=== PATIENT | female | born 1985 | race African-American/Black ===

== ENCOUNTER 2018-05-09 23:07 | Observation (INO) ==
[2018-05-10] MEDS ORDERED: Morphine Inj 4 MG/ML Vial IV.PUSH ONE ×2 (00:22→23:02)
[2018-05-10] MEDS ORDERED: Ketorolac Inj 30 MG/ML (IVP) Vial IV.PUSH ONE (00:22)
[2018-05-10] MEDS ORDERED: Sod Chloride 0.9% Inj 1,000 ML IV.CONT SCH (00:30)
--- NOTE | 2018-05-10 01:19 | XR ---
EXAM DATE: 05/10/2018 1:11 AM EST AGE/SEX: 32 years / Female INDICATIONS: Pain for one week. CLINICAL DATA: This is the patient's initial encounter. Patient reports that signs and symptoms have been present for 1 week and indicates a pain score of 5/10. MEDICAL/SURGICAL HISTORY: None. None. COMPARISON: No prior exams available for comparison. FINDINGS: The lumbar vertebral bodies are normal in height. They are normally aligned in the sagittal plane. Th ere is a levocurvature of the thoracolumbar region. The disc spaces are preserved. There is mild spur ring seen at the lower thoracic and upper lumbar spine. The sacroiliac joints are intact. CONCLUSION: No acute abnormality seen. Electronically signed by: Brayan Gutierrez MD Board Certified Radiologist 05/10/2018 1:18 AM EST
--- NOTE | 2018-05-10 01:21 | XR ---
EXAM DATE: 05/10/2018 1:10 AM EST AGE/SEX: 32 years / Female INDICATIONS: Pain for one week. CLINICAL DATA: This is the patient's initial encounter. Patient reports that signs and symptoms have been present for 1 week and indicates a pain score of 5/10. MEDICAL/SURGICAL HISTORY: None. None. COMPARISON: No prior exams available for comparison. FINDINGS: There is widening of the pubic symphysis measuring 2.3 cm. The sacroiliac joints appear widened. An a cute fracture is not seen. The hip joints are normally aligned. CONCLUSION: Widened pubic symphysis and possibly the sacroiliac joints. This should be correlate if there has bee n a prior injury. Electronically signed by: Brayan Gutierrez MD Board Certified Radiologist 05/10/2018 1:20 AM EST
[2018-05-10 01:41] LABS: Anion Gap 6 meq/L (5-15); Blood Urea Nitrogen 12 mg/dL (7-18); Calcium 8.5 mg/dL (8.5-10.1); Carbon Dioxide 26.6 meq/L (21.0-32.0); Chloride 108 meq/L (98-107); Glomerular Filtration Rate Greater Than 89 mL/min (>89); Glucose,Random 91 mg/dL (74-106); Potassium 3.9 meq/L (3.5-5.1); Sodium 141 meq/L (136-145)
[2018-05-10 01:43] LABS: Creatine Kinase 116 U/L (26-192)
[2018-05-10 01:49] LABS: Activated Partial Thrombo Time 28.5 sec (23.4-31.7); Prothrombin Time 10.3 sec (9.8-11.6)
[2018-05-10 01:50] LABS: Baso # (Auto) 0.1 th/mm3 (0.0-0.2); Baso % (Auto) 0.8 % (0.0-2.0); Eos # (Auto) 0.1 th/mm3 (0.0-0.4); Eos % (Auto) 0.8 % (0.0-4.0); Hematocrit 23.4 % (35.0-46.0); Lymph % (Auto) 21.3 % (9.0-44.0); Mean Corpuscular Hemoglobin 15.9 pg (27.0-34.0); Mean Corpuscular Volume 56.5 fL (80.0-100.0); Mono # (Auto) 0.5 th/mm3 (0.0-0.9); Mono % (Auto) 5.1 % (0.0-8.0); Neut # (Auto) 6.6 th/mm3 (1.8-7.7); Platelet Count 467 th/mm3 (150-450); Red Blood Count 4.14 mil/mm3 (4.00-5.30); White Blood Count 9.2 th/mm3 (4.0-11.0)
[2018-05-10 01:51] LABS: Mean Corpuscular HGB Conc 28.1 % (32.0-36.0)
[2018-05-10 01:54] LABS: Hemoglobin 6.6 gm/dL (11.6-15.3)
[2018-05-10 02:18] LABS: Ovalocytes 1+
--- NOTE | 2018-05-10 04:07 | CT ---
EXAM DATE: 05/10/2018 3:57 AM EST AGE/SEX: 32 years / Female INDICATIONS: Trauma; Fall. Lower back and pelvic pain. CLINICAL DATA: This is the patient's initial encounter. Patient reports that signs and symptoms have been present for 1 day and indicates a pain score of 7/10. MEDICAL/SURGICAL HISTORY: Anemia. section. ORAL CONTRAST: No oral contrast ingested. RADIATION DOSE: 32.79 CTDI (mGy) ; Patient body habitus COMPARISON: No prior exams available for comparison. TECHNIQUE: Multiple contiguous axial images were obtained through the abdomen and pelvis following b olus infusion of 100 ml Omnipaque 350 (iohexol) nonionic water-soluble contrast as a single exam do se. No oral contrast ingested. Using automated exposure control and adjustment of the mA and/or kV a ccording to patient size, radiation dose was kept as low as reasonably achievable to obtain optimal d iagnostic quality images. DICOM format image data is available electronically for review and compari son. FINDINGS: Lower Lungs: The visualized lower lungs are clear. Liver: The liver has a homogeneous density without space-occupying lesion. There is no dilation of th e biliary tree. Spleen: Homogeneous density without enlargement. Pancreas: Unremarkable without mass or calcification. Kidneys: Normal in size and shape. No evidence of mass or hydronephrosis. Adrenal Glands: Unremarkable. Aorta: The aorta and proximal iliac vessels are grossly unremarkable without aneurysmal dilation. Bowel/Mesentery: The bowel loops are grossly unremarkable. The cecum and sigmoid colon have a normal configuration. Abdominal Wall: Intact. There is a focal metallic density seen in the deep subcutaneous fat at the l eft lateral lower abdomen just above the pelvic inlet region. Retroperitoneum: No evidence of adenopathy in the retrocrural, para-aortic, or deep pelvic regions. Bladder: Contours are smooth. Reproductive Organs: No abnormal masses or calcifications seen. Inguinal: The inguinal region is unremarkable without evidence of adenopathy. Bony Structures: There is a dextrocurvature of the thoracic spine and a levocurvature of the thoraco lumbar region. There is widening of the pubic symphysis measuring 1.9 cm. The sacroiliac joints appea r slightly widened. An acute fracture is not seen. CONCLUSION: Mild diastases of the pubic symphysis with the pubic bones by 1.9 cm. There is also slight widening of the sacroiliac joints. Electronically signed by: Brayan Gutierrez MD Board Certified Radiologist 05/10/2018 4:06 AM EST
[2018-05-10] MEDS ORDERED: HYDROmorphone PF Inj 2 MG/ML Vial IV.PUSH ONE (04:56)
--- NOTE | 2018-05-10 05:10 | ED ---
HPI General Chief Complaint: Fall Stated Complaint: Back pain Time Seen by Provider: 05/10/18 00:21 Source: patient Mode of arrival: EMS Limitations: no limitations History of Present Illness HPI Narrative: 32-year-old female presents to the emergency department by EMS transport for complaint of chronic recurrent low back pain. Patient has history of chronic back pain. Patient has been hospitalized before for chronic back pain. Patient was hospitalized in 2016. Patient had MRI that showed chronic changes without significant canal stenosis. Patient has done pretty well with intermittent episodes of chronic back pain however on Sunday was doing nonspecific activities noticed that she was having increasing low back pain and then on morning she states that her back locked up on her so that she could not tolerate the pain causing her to fall to the floor. Patient states she landed on her buttock. Patient states she did not sustain any injuries. Patient states that she does not have a headache. Patient states she did not hit her head. Patient denies any neck pain or upper back pain. Patient states pain is localized to her lower midline back which is where she chronically has pain. Patient denies any pelvic pain. Patient denies any hip pain. Patient states she has no numbness tingling or weakness of the legs but intermittently has shooting pain down the left lower extremity. Patient had no saddle anesthesia. Patient denies any bladder or bowel dysfunction. Patient states she sat on the floor for approximately 5 hours was able to move around the household by scooting herself and then finally her family helped her get up on the couch and she was able to be assisted to the bathroom to perform bodily functions such as urination and bowel movement. Patient states she took Aleve without symptomatic relief. Patient states because she has had issues with her back before and Aleve is not providing her relief she decided to come to the emergency room. Patient states that she was not able to get around with family assistance to come by private vehicle so came by EMS transport. Patient denies other concerns or complaints but does admit to history of chronic anemia. Patient has received blood transfusion in the past. Patient had no nausea no vomiting no hematemesis no coffee-ground emesis no melena no hematochezia no hemoptysis no epistaxis and no increased bruising. Patient has very heavy periods and states that her last menstrual period was 1 week ago when she passed large clots and had heavy bleeding which is typical for her. Patient's been on no iron replacement for over a year since her hospitalization in 2016. complaint: Reports fall Onset (ago): day(s) Related Data Home Medications Medication Instructions Recorded Confirmed No Known Home Medications 05/09/18 05/09/18 Allergies Allergy/AdvReac Type Severity Reaction Status Date / Time No Known Allergies Allergy Verified 05/09/18 23:15 Review of Systems ROS: all other systems reviewed are negative PMFSH History History Provided By: Patient (Anemia scoliosis chronic back pain) Medical History Medical History Anemia (Acute) Back pain (Acute) Surgical History Surgical History Previous section (Acute) Social History Social History Substance History: No History of Abuse Second Hand Smoke Exposure: No Smoking Status: Former smoker How Often Do You Have a Drink Containing Alcohol: Monthly or less Recent Travel in [facility] within the Last 8 Weeks: No Recent Out of Country Travel within the Last 8 Weeks: No Immunization History Tetanus Immunization: Unsure Exam Narrative Exam Narrative: GENERAL: Well-developed morbidly obese female in no acute distress no respiratory distress resting supine. SKIN: Focused skin assessment warm/dry. HEAD: Atraumatic. Normocephalic. EYES: Pupils equal and round. No scleral icterus. No injection or drainage. ENT: No nasal bleeding or discharge. Mucous membranes pink and moist. NECK: Trachea midline. No JVD. CARDIOVASCULAR: Regular rate and rhythm. No murmur appreciated. RESPIRATORY: No accessory muscle use. Clear to auscultation. Breath sounds equal bilaterally. GASTROINTESTINAL: Abdomen soft, non-tender, nondistended. Hepatic and splenic margins not palpable. MUSCULOSKELETAL: No obvious deformities. No clubbing. No cyanosis. No edema. Patient demonstrates increased pain to the low back area with palpation and also with rotational movement or attempting to sit upright. Patient denies any upper back pain or pelvic pain or lower extremity numbness tingling or weakness or pain. Motor strength is 5/5 bilateral upper extremities and lower extremities. Sensory exam is intact. LLE SLR. Bilateral dorsalis pedis pulses 2+ to palpation. NEUROLOGICAL: Awake and alert. No obvious cranial nerve deficits. Motor grossly within normal limits. Normal speech. PSYCHIATRIC: Appropriate mood and affect; insight and judgment normal. Course Consultations Consultation #1: call placed to [facility] medicine service Initial Documented Vital Signs Temperature 98.7 F 05/09/18 23:10 Pulse Rate 77 05/09/18 23:10 Respiratory Rate 17 05/09/18 23:10 Blood Pressure 141/63 H 05/09/18 23:10 Pulse Oximetry 99 05/09/18 23:10 Last Documented Vital Signs Temperature 98.7 F 05/09/18 23:10 Pulse Rate 68 05/10/18 04:57 Respiratory Rate 17 05/10/18 04:57 Blood Pressure 114/56 L 05/10/18 04:57 Pulse Oximetry 100 05/10/18 04:57 Medical Decision Making MDM Narrative Medical decision making narrative: 32-year-old female with chronic lumbar back pain. Patient with increasing pain times 1 day. Patient with no symptom relief after taking Aleve and increasing low back pain presents now for further evaluation. Patient also with history of anemia currently taking no iron replacement and continues to have heavy menses. Imaging study ordered of the lumbar spine and due to falling from a standing height with increased low back pain and landing on the buttock. No limb length discrepancy. No internal or external rotation of the lower extremities. Patient is able to perform hip flexion without pain. Patient administered Toradol 30 mg IV, morphine sulfate 2 mg IV and IV fluids Lumbar spine reveals no acute abnormality; pelvic x-ray does show no acute fracture but 1.9 cm symphysis pubis is diaphysis. Patient on examination has no point tenderness over the symphysis pubis and has no pelvic instability with pelvic rock and no increased pain with attempted pelvic rock. Patient is identified to have hemoglobin of 6.6 with chronic indices of chronic anemia; type and screen ordered with 1 unit of blood ordered for transfusion CT abdomen pelvis reveals no acute intra-abdominal or pelvic abnormality although does consistently identify a 1.9 cm symphysis pubis diastasis. This is shared with patient is not unaware of having any pelvic abnormalities although reportedly was told that she could not deliver her children by vaginal delivery and has had previous C-sections due to issues with her pelvis. No imaging studies noted previously. On repeat physical exam patient has no point tenderness over the symphysis pubis. Pain is only isolated to the low back with movement or hip flexion or extension or straight leg raising. Plan is to admit to OBS patient for intractable back pain as well as anemia. Medical Screen Exam Complete: Yes Emergency Medical Condition: Yes Lab Data Result diagrams: 05/10/18 01:10 05/10/18 01:10 Lab Results 05/10/18 05/10/18 05/10/18 Range/Units 01:10 01:10 01:10 WBC 9.2 (4.0-11.0) th/mm3 RBC 4.14 (4.00-5.30) mil/mm3 Hgb 6.6 L* (11.6-15.3) gm/dL Hct 23.4 L (35.0-46.0) % MCV 56.5 L (80.0-100.0) fL MCH 15.9 L (27.0-34.0) pg MCHC 28.1 L (32.0-36.0) % RDW 21.0 H (11.6-17.2) % Plt Count 467 H (150-450) th/mm3 MPV 9.0 (7.0-11.0) fL Prelim Diff (Auto) Slide review pending Neut % (Auto) 72.0 H (16.0-70.0) % Lymph % (Auto) 21.3 (9.0-44.0) % [place] % (Auto) 5.1 (0.0-8.0) % Eos % (Auto) 0.8 (0.0-4.0) % Baso % (Auto) 0.8 (0.0-2.0) % Neut # (Auto) 6.6 (1.8-7.7) th/mm3 Lymph # (Auto) 2.0 (1.0-4.8) th/mm3 [place] # (Auto) 0.5 (0.0-0.9) th/mm3 Eos # (Auto) 0.1 (0.0-0.4) th/mm3 Baso # (Auto) 0.1 (0.0-0.2) th/mm3 WBC Differential . Diff Scan Auto diff confirmed Differential Comment . Platelet Estimate High H (Normal) Platelet Morphology Enlarged H (Normal) Ovalocytes 1+ H (None) Keratocytes Occ H (None) PT 10.3 (9.8-11.6) sec INR 1.0 Ratio APTT 28.5 (23.4-31.7) sec Sodium 141 (136-145) meq/L Potassium 3.9 (3.5-5.1) meq/L Chloride 108 H (98-107) meq/L Carbon Dioxide 26.6 (21.0-32.0) meq/L Anion Gap 6 (5-15) meq/L BUN 12 (7-18) mg/dL Creatinine 0.77 (0.50-1.00) mg/dL Estimated GFR Greater than 89 (>89) mL/min Random Glucose 91 (74-106) mg/dL Calcium 8.5 (8.5-10.1) mg/dL Total Creatine Kinase 116 (26-192) U/L CK-MB (CK-2) Less than 1.0 (0.5-3.6) ng/mL Beta HCG, Quant (0-5) mIU/mL Blood Type Antibody Screen 05/10/18 05/10/18 Range/Units 01:10 02:24 WBC (4.0-11.0) th/mm3 RBC (4.00-5.30) mil/mm3 Hgb (11.6-15.3) gm/dL Hct (35.0-46.0) % MCV (80.0-100.0) fL MCH (27.0-34.0) pg MCHC (32.0-36.0) % RDW (11.6-17.2) % Plt Count (150-450) th/mm3 MPV (7.0-11.0) fL Prelim Diff (Auto) Neut % (Auto) (16.0-70.0) % Lymph % (Auto) (9.0-44.0) % [place] % (Auto) (0.0-8.0) % Eos % (Auto) (0.0-4.0) % Baso % (Auto) (0.0-2.0) % Neut # (Auto) (1.8-7.7) th/mm3 Lymph # (Auto) (1.0-4.8) th/mm3 [place] # (Auto) (0.0-0.9) th/mm3 Eos # (Auto) (0.0-0.4) th/mm3 Baso # (Auto) (0.0-0.2) th/mm3 WBC Differential Diff Scan Differential Comment Platelet Estimate (Normal) Platelet Morphology (Normal) Ovalocytes (None) Keratocytes (None) PT (9.8-11.6) sec INR Ratio APTT (23.4-31.7) sec Sodium (136-145) meq/L Potassium (3.5-5.1) meq/L Chloride (98-107) meq/L Carbon Dioxide (21.0-32.0) meq/L Anion Gap (5-15) meq/L BUN (7-18) mg/dL Creatinine (0.50-1.00) mg/dL Estimated GFR (>89) mL/min Random Glucose (74-106) mg/dL Calcium (8.5-10.1) mg/dL Total Creatine Kinase (26-192) U/L CK-MB (CK-2) (0.5-3.6) ng/mL Beta HCG, Quant Less than 1 (0-5) mIU/mL Blood Type A Positive Antibody Screen Negative Imaging Data Radiologist's impression: Pelvis X-Ray 05/10/18 00:22 CONCLUSION: Widened pubic symphysis and possibly the sacroiliac joints. This should be correlate if there has been a prior injury. Lumbar Spine X-Ray 05/10/18 00:23 CONCLUSION: No acute abnormality seen. Abdomen/Pelvis CT 05/10/18 02:14 CONCLUSION: Mild diastases of the pubic symphysis with the pubic bones by 1.9 cm. There is also slight widening of the sacroiliac joints. Discharge Plan Discharge Disposition Patient Disposition: ED Admit(ED Internal Use Only) Discharge Condition Condition: Stable Discharge Details Diagnosis: Intractable low back pain, Iron deficiency anemia Physicians Team ED Provider: Anastacia Palomo Rxs /Orders / Referrals /Forms Prescriptions: No Action No Known Home Medications RF: 0 Discharge Interventions Interventions: Vital Signs Last Done: 05/10/18 04:57 Status ED Status: With Doctor
[2018-05-10] MEDS ORDERED: Bisacodyl 10 MG Supp RECTAL PRN (05:26)
[2018-05-10] MEDS ORDERED: Acetaminophen 325 MG Tablet PO PRN (05:26)
[2018-05-10] MEDS: Senna/Docusate Sodium 8.6/50 MG Tablet PO SCH ×2 (09:33→20:20)
--- NOTE | 2018-05-10 11:38 | P.HP ---
History of Present Illness Primary Care Physician: Kylah Mckay Chief Complaint: Back pain History of Present Illness: 32-year-old female with history of scoliosis, chronic back pain, anemia, presents with acute on chronic back pain. Patient reports yesterday she had an episode where her back "locked up" and she fell to the floor. States she fell backwards, landed on her buttocks, but did not hit her head or lose consciousness. Patient states she was unable to get off the floor for over 5 hours, until family was able to assist her to the couch. She locates the pain diffusely across her lower back with radiation into the left leg, described as a constant aching pain. She took some Aleve with no relief. She was still unable to ambulate therefore she called [facility] and transported to the ER. She states she has been dealing with back pain for a long time secondary to her scoliosis. She denies any prior spinal surgeries. She denies any lower extremity numbness or weakness, but does report pain down the left leg which is chronic for her. States she sees PCP Dr. Mckay, but does not follow with orthopedics or neurology or pain management. She states usually her back pain is fairly well controlled. Upon arrival to the ED, lumbar x-ray was unremarkable, however the patient was found to have a hemoglobin of 6.6. The patient reports that she recently had a very heavy and long menstrual cycle that lasted 8 days. She states occasionally she does experience very heavy periods. She currently denies any lightheadedness, dizziness, chest pain, palpitations, shortness of breath. She states at one point she was told she should be on iron replacement, but has not taken any recently. She has no other medical complaints at this time. Review of Systems All other systems reviewed negative except as stated in HPI PMFSH - History History Provided By: Patient - Medical History Medical History: Medical History (Last Updated 05/10/18 @ 14:25 by Aliza Beal) Anemia Back pain Scoliosis - Surgical History Surgical History: Surgical History (Last Reviewed 05/10/18 @ 14:25 by Aliza Beal) Previous section - Family History Family History: Family History (Last Updated 05/10/18 @ 14:25 by Aliza Beal) Other Diabetes - Social History I have reviewed the patient's Social History: Yes - Tobacco History Second Hand Smoke Exposure: No Tobacco Use In Past 30 Days: Yes Smoking Status: Current some day smoker (twice a week) Tobacco Type: Cigarettes - Alcohol History How Often Do You Have a Drink Containing Alcohol: Never - Substance Use History Substance History: No History of Abuse - Travel History Recent Travel in the [place] Within the Last 8 Weeks: No Recent Travel Out of the Country Within the Last 8 Weeks: No - Immunization History Tetanus Immunization: Unsure Medications and Allergies Active Medications: Active Medications Acetaminophen (Tylenol) 650 mg PO Q4H PRN PRN Reason: Temp > 100.4 Al Hydroxide/Mg Hydroxide (Milk Of Magnesia Liq) 30 ml PO Q12H PRN PRN Reason: Mild Constipation Bisacodyl (Dulcolax Supp) 10 mg RECTAL DAILY PRN PRN Reason: SEVERE CONSITIPATION Lactulose (Lactulose Liq) 30 ml PO DAILY PRN PRN Reason: SEVERE CONSITIPATION Ondansetron HCl (Zofran Inj) 4 mg IV.PUSH Q6H PRN PRN Reason: NAUSEA OR VOMITING Senna/Docusate Sodium (Concetta-Colace) 1 tab PO BID [facility] Last Admin: 05/10/18 09:33 Dose: Not Given Sennosides (Senokot) 17.2 mg PO Q12H PRN PRN Reason: Moderate Constipation Sodium Chloride (Ns Flush) 2 ml IV.FLUSH PRN PRN PRN Reason: FLUSH AFTER USING IV ACCESS Sodium Chloride (Ns Flush) 2 ml IV.FLUSH PRN PRN PRN Reason: FLUSH AFTER USING IV ACCESS Sodium Chloride (Ns Flush) 2 ml IV.FLUSH BID [facility] Last Admin: 05/10/18 09:32 Dose: Not Given Allergies Allergy/AdvReac Type Severity Reaction Status Date / Time No Known Allergies Allergy Verified 05/09/18 23:15 Home Medications Medication Instructions Recorded Confirmed Type No Known Home Medications 05/09/18 05/09/18 History Exam Vital signs: Vital Signs 05/09/18 23:10 05/10/18 01:50 05/10/18 04:57 Temperature 98.7 F Pulse Rate 77 76 68 Respiratory Rate 17 17 Blood Pressure 141/63 H 114/56 L Pulse Oximetry 99 100 05/10/18 05:00 05/10/18 06:04 05/10/18 06:20 Temperature 98.2 F 98.2 F Pulse Rate 74 69 Respiratory Rate 17 16 17 Blood Pressure 121/57 L 118/57 L Pulse Oximetry 99 100 05/10/18 06:39 05/10/18 07:18 05/10/18 10:29 Temperature 97.9 F Pulse Rate 72 Respiratory Rate 17 16 Blood Pressure 103/54 L Pulse Oximetry 96 99 05/10/18 11:05 Temperature 98.4 F Pulse Rate 75 Respiratory Rate 16 Blood Pressure 107/52 L Pulse Oximetry 99 Intake & Output 05/09/18 05/10/18 05/10/18 18:59 06:59 18:59 Intake Total 0 / 0 400 / 400 Balance 0 / 0 400 / 400 Weight 136.078 kg 136.078 kg Intake: Intake (Blood Product) Amt 0 / 0 400 / 400 Rbc As-3 Leukoreduced Unit 0 / 0 [id number] Rbc As-3 Leukoreduced Unit 0 / 0 400 / 400 [id number] Other: Weight On Admission 136.078 kg Narrative: GENERAL: Well-nourished, well-developed obese young AA female patient in [facility]. SKIN: Warm and dry. No rash. HEENT: Normocephalic. Atraumatic. Pupils equal and round. Mucous membranes pink and moist. NECK: Supple. Trachea midline. CARDIOVASCULAR: Regular rate and rhythm. No murmur appreciated. RESPIRATORY: No accessory muscle use. Clear to auscultation. Breath sounds equal bilaterally. GASTROINTESTINAL: Abdomen soft, non-tender, nondistended. Normoactive bowel sounds x4. MUSCULOSKELETAL: No obvious deformities. Extremities without clubbing, cyanosis , or edema. Diffuse lumbar paraspinous muscle tenderness to palpation without any bony point tenderness. NEUROLOGICAL: Awake and alert. No obvious cranial nerve deficits. 5/5 strength of bilateral upper and lower extremities. Normal speech. PSYCHIATRIC: Appropriate mood and affect; insight and judgment normal. Results - Labs CBC & Chem 7: 05/10/18 01:10 05/10/18 01:10 Labs: Laboratory Results - last 24 hr 05/10/18 05/10/18 05/10/18 01:10 01:10 01:10 WBC 9.2 RBC 4.14 Hgb 6.6 L* Hct 23.4 L MCV 56.5 L MCH 15.9 L MCHC 28.1 L RDW 21.0 H Plt Count 467 H MPV 9.0 Prelim Diff (Auto) Slide review pending Neut % (Auto) 72.0 H Lymph % (Auto) 21.3 [place] % (Auto) 5.1 Eos % (Auto) 0.8 Baso % (Auto) 0.8 Neut # (Auto) 6.6 Lymph # (Auto) 2.0 [place] # (Auto) 0.5 Eos # (Auto) 0.1 Baso # (Auto) 0.1 WBC Differential . Diff Scan Auto diff confirmed Differential Comment . Platelet Estimate High H Platelet Morphology Enlarged H Ovalocytes 1+ H Keratocytes Occ H PT 10.3 INR 1.0 APTT 28.5 Sodium 141 Potassium 3.9 Chloride 108 H Carbon Dioxide 26.6 Anion Gap 6 BUN 12 Creatinine 0.77 Estimated GFR Greater than 89 Random Glucose 91 Calcium 8.5 Total Creatine Kinase 116 CK-MB (CK-2) Less than 1.0 Beta HCG, Quant Blood Type Antibody Screen MTS Gel Crossmatch Bld Prod Order Comment 05/10/18 05/10/18 05/10/18 01:10 02:24 05:23 WBC RBC Hgb Hct MCV MCH MCHC RDW Plt Count MPV Prelim Diff (Auto) Neut % (Auto) Lymph % (Auto) [place] % (Auto) Eos % (Auto) Baso % (Auto) Neut # (Auto) Lymph # (Auto) [place] # (Auto) Eos # (Auto) Baso # (Auto) WBC Differential Diff Scan Differential Comment Platelet Estimate Platelet Morphology Ovalocytes Keratocytes PT INR APTT Sodium Potassium Chloride Carbon Dioxide Anion Gap BUN Creatinine Estimated GFR Random Glucose Calcium Total Creatine Kinase CK-MB (CK-2) Beta HCG, Quant Less than 1 Blood Type A Positive Antibody Screen Negative MTS Gel Crossmatch See Detail Bld Prod Order Comment - Imaging Impressions Pelvis X-Ray 05/10/18 00:22 CONCLUSION: Widened pubic symphysis and possibly the sacroiliac joints. This should be correlate if there has been a prior injury. Lumbar Spine X-Ray 05/10/18 00:23 CONCLUSION: No acute abnormality seen. Abdomen/Pelvis CT 05/10/18 02:14 CONCLUSION: Mild diastases of the pubic symphysis with the pubic bones by 1.9 cm. There is also slight widening of the sacroiliac joints. Caprini VTE Risk Assessment Caprini VTE Risk Assessment: No/Low Risk (score <= 1) Caprini Risk Assessment Model: Point Value = 1 Point Value = 2 Point Value = 3 Point Value = 5 Age 41-60 Minor surgery BMI > 25 kg/m2 Swollen legs Varicose veins or History of unexplained or recurrent spontaneous Oral contraceptives or hormone replacement Sepsis (< 1 month) Serious lung disease, including pneumonia (< 1 month) Abnormal pulmonary function Acute myocardial infarction Congestive heart failure (< 1 month) History of inflammatory bowel disease Medical patient at bed rest Age 61-74 Arthroscopic surgery Major open surgery (> 45 min) Laparoscopic surgery (> 45 min) Malignancy Confined to bed (> 72 hours) Immobilizing plaster cast Central venous access Age >= 75 History of VTE Family history of VTE Factor V Leiden Prothrombin [id number] Lupus anticoagulant Anticardiolipin antibodies Elevated serum homocysteine Heparin-induced thrombocytopenia Other congenital or acquired thrombophilia Stroke (< 1 month) Elective arthroplasty Hip, pelvis, or leg fracture Acute spinal cord injury (< 1 month) Prophylaxis Regimen: Total Risk Factor Score Risk Level Prophylaxis Regimen 0-1 Low Early ambulation 2 Moderate Order ONE of the following: *Sequential Compression Device (SCD) *Heparin 5000 units SQ BID 3-4 Higher Order ONE of the following medications: *Heparin 5000 units SQ TID *Enoxaparin/Lovenox 40 mg SQ daily (WT < 150 kg, CrCl > 30 mL/min) *Enoxaparin/Lovenox 30 mg SQ daily (WT < 150 kg, CrCl > 10-29 mL/min) *Enoxaparin/Lovenox 30 mg SQ BID (WT < 150 kg, CrCl > 30 mL/min) AND/OR *Sequential Compression Device (SCD) 5 or more Highest Order ONE of the following medications: *Heparin 5000 units SQ TID (Preferred with Epidurals) *Enoxaparin/Lovenox 40 mg SQ daily (WT < 150 kg, CrCl > 30 mL/min) *Enoxaparin/Lovenox 30 mg SQ daily (WT < 150 kg, CrCl > 10-29 mL/min) *Enoxaparin/Lovenox 30 mg SQ BID (WT < 150 kg, CrCl > 30 mL/min) AND *Sequential Compression Device (SCD) Assessment and Plan - Plan 32-year-old female with history of scoliosis, chronic back pain, anemia, presents with acute on chronic back pain after a fall Acute on chronic low back pain: Suspect exacerbated by fall -Lumbar spine x-ray reviewed and unremarkable -Pelvic x-ray and pelvis CT shows widening of the pubic symphysis, otherwise no acute fracture -Continue pain control with Percocet as needed, Flexeril as needed for spasms , and heating pad -Consult PT Acute severe blood loss microcytic anemia: Suspect secondary to menorrhagia, patient is status post recent prolonged menstrual cycle times 8 days, now stopped. -Check iron panel, ferritin, B12, folate -Giving 2 units PRBC transfusion -Repeat CBC in the morning DVT prophylaxis: Teds/SCDs Discharge Planning: Likely discharge tomorrow 05/11 if hemoglobin greater than 8 s/p transfusion, and if back pain improves.
[2018-05-10] MEDS ORDERED: Naloxone Inj 0.4 MG/ML Vial IV.PUSH PRN (12:53)
[2018-05-10] MEDS: oxyCODONE/Acetaminophen 10/325 Tablet PO PRN ×2 (13:31→20:19)
[2018-05-10 15:46] LABS: % Iron Saturation 3.2 % (20-50)
[2018-05-10 16:11] LABS: Folate 10.9 ng/mL (3.1-17.5)
[2018-05-10 17:26] LABS: Hematocrit 27.2 % (35.0-46.0); Hemoglobin 8.3 gm/dL (11.6-15.3)
[2018-05-10] MEDS: Ferrous Sulfate 325 MG Tablet PO SCH (20:20)
[2018-05-11 08:32] LABS: Baso % (Auto) 0.5 % (0.0-2.0); Eos # (Auto) 0.1 th/mm3 (0.0-0.4); Eos % (Auto) 1.3 % (0.0-4.0); Hematocrit 27.1 % (35.0-46.0); Lymph # (Auto) 1.4 th/mm3 (1.0-4.8); Lymph % (Auto) 21.4 % (9.0-44.0); Mean Corpuscular Hemoglobin 18.2 pg (27.0-34.0); Mean Corpuscular Volume 61.6 fL (80.0-100.0); Mean Platelet Volume 8.6 fL (7.0-11.0); Mono # (Auto) 0.4 th/mm3 (0.0-0.9); Mono % (Auto) 5.4 % (0.0-8.0); Neut # (Auto) 4.7 th/mm3 (1.8-7.7); Neut % (Auto) 71.4 % (16.0-70.0); Platelet Count 403 th/mm3 (150-450); Red Blood Count 4.39 mil/mm3 (4.00-5.30); Red Cell Distribution Width 24.6 % (11.6-17.2); White Blood Count 6.6 th/mm3 (4.0-11.0)
[2018-05-11 08:37] LABS: Mean Corpuscular HGB Conc 29.5 % (32.0-36.0)
[2018-05-11] MEDS: Ferrous Sulfate 325 MG Tablet PO SCH ×2 (08:55→21:44)
[2018-05-11] MEDS: Senna/Docusate Sodium 8.6/50 MG Tablet PO SCH ×2 (08:55→21:44)
[2018-05-11] MEDS: oxyCODONE/Acetaminophen 10/325 Tablet PO PRN ×3 (08:55→21:44)
[2018-05-11 09:12] LABS: Anion Gap 7 meq/L (5-15); Blood Urea Nitrogen 12 mg/dL (7-18); Calcium 8.9 mg/dL (8.5-10.1); Carbon Dioxide 27.8 meq/L (21.0-32.0); Chloride 105 meq/L (98-107); Glomerular Filtration Rate Greater Than 89 mL/min (>89); Glucose,Random 77 mg/dL (74-106); Potassium 3.8 meq/L (3.5-5.1); Sodium 140 meq/L (136-145)
--- NOTE | 2018-05-11 16:08 | P.PNIM ---
Subjective Interval history: Patient seen and evaluated splinted bedside. Patient reports diffuse pain particularly in the back but denies sharp shooting pain down the legs or numbness or tingling. Patient was not able to work with physical therapy much due to pain at this time Patient denies chest pain, palpitations when moving Patient reports that she received blood transfusion and is no longer bleeding. Patient reports that she had previously experienced menorrhagia for approximately 8 days. Physical Exam Vital signs: Last Vital Signs Temp 97.8 F 05/11/18 12:00 Pulse 65 05/11/18 12:00 Resp 14 05/11/18 12:00 BP 127/59 L 05/11/18 12:00 Pulse Ox 97 05/11/18 12:00 Intake & Output 05/09/18 05/10/18 05/11/18 05/12/18 06:59 06:59 06:59 06:59 Intake Total 0 / 0 1900 / 1900 Balance 0 / 0 1900 / 1900 Weight 136.078 kg 137.9 kg General: No acute distress, conversational, obese HEENT: EOMI, PERRLA Cardiovascular: S1/S2 Respiratory: Clear to auscultation. No intercostal muscle use Muscular skeletal: Lumbar paraspinal tenderness Extremity: No edema Results Labs CBC & Chem 7: 05/11/18 06:55 05/11/18 06:55 Assessment and Plan Plan Patient is a pleasant 32-year-old female with past medical history of menorrhagia and scoliosis presenting to emergency department for back pain and tightness. Orthopedics: Mechanical fall Imaging negative for acute fracture Physical therapy note reviewed via EMR. 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 Anticipate discharge within 24 hours Progress Note: Quality VTE Deep Vein Thrombosis/Pulmonary Embolism Present on Admission: Yes
[2018-05-11] MEDS ORDERED: Ketorolac Inj 30 MG/ML (IVP) Vial IV.PUSH ONE (23:29)
[2018-05-12] MEDS: Pregabalin 75 MG Capsule PO SCH ×3 (01:59→21:13)
[2018-05-12] MEDS ORDERED: HYDROmorphone PF Inj 2 MG/ML Vial IV.PUSH ONE (03:25)
--- NOTE | 2018-05-12 03:38 | P.PNIM ---
Contacted multiple times by RN caring for Ms. Reinoso regarding severe low back and radicular leg pain. Patient tried on oral narcotics and muscle relaxants with no benefit. Given IV Morphine previously with no relief. Patient treated with dose of IV Toradol, Lidoderm patch and po Lyrica without any lasting relief. According to RN, patient has been unable to sleep for the last few nights due to severe pain. She is crying, quite upset and calling out for help. Patient is afebrile. No leukocytosis on CBC 05/11. Per verification on [employer], patient on Oxycodone 30mg QID however, patient states she does not take anything for pain at home. Concern for possible malingering/drug seeking behavior. Her HR is not elevated and her BP is actually borderline hypotensive at present. Will obtain MR Lumbar spine for further evaluation. Check ESR and CRP.
[2018-05-12] MEDS: Ferrous Sulfate 325 MG Tablet PO SCH ×2 (08:29→21:13)
[2018-05-12] MEDS: Senna/Docusate Sodium 8.6/50 MG Tablet PO SCH ×2 (08:29→21:14)
[2018-05-12] MEDS: Lidocaine 5% Patch T-DERMAL SCH (08:29)
--- NOTE | 2018-05-12 11:02 | MR ---
EXAM DATE: 05/12/2018 10:51 AM EST AGE/SEX: 32 years / Female INDICATIONS: . Back and lower extremity pain. CLINICAL DATA: This is the patient's initial encounter. Patient reports that signs and symptoms have been present for 1 day and indicates a pain score of 0/10. MEDICAL/SURGICAL HISTORY: . Scoliosis. section. COMPARISON: [facility] [place], MRI LUMBAR SPINE W/O CONTRAST, 03/23/2016. . TECHNIQUE: Multiplanar, multisequence MRI of the lumbar spine was performed without contrast. Patie nt was scanned in a sitting position; neutral, flexion, and extension scans were performed in the sa gittal plane. FINDINGS: Vertebra: Homogeneous signal. Normal alignment seen on the lateral exam. Axial imaging demonstrates mild levoscoliosis of the thoracolumbar junction. Conus: Normal level and configuration. T12-L1: The thecal sac has a normal diameter. No evidence of disc bulge or protrusion. The neural foramina are patent bilaterally. Moderate bilateral facet degenerative change. L1-L2: Normal disc bulge and mild to moderate facet degenerative change. No significant spinal leno l or neuroforaminal narrowing. L2-L3: Mild disc desiccation and disc space narrowing with broad-based disc bulge. Moderate facet d egenerative change. Mild left-sided neuroforaminal narrowing. L3-L4: Mild disc desiccation and broad-based disc bulge. Moderate facet degenerative change. Mild b ilateral neuroforaminal narrowing. L4-L5: Broad-based disc bulge and moderate facet degenerative change. Moderate to severe central ca nal stenosis the posterior central aspect of the disc extrudes somewhat inferiorly, stable in appeara nce from prior exam. There is moderate bilateral neuroforaminal stenosis. L5-S1: The thecal sac has a normal diameter. No evidence of disc bulge or protrusion. The neural foramina are patent bilaterally. Moderate facet degenerative change. CONCLUSION: 1. Stable degenerative changes of the lumbar spine as noted above. Degenerative changes within the f acet joints at all levels. The disc extrusion at L4/L5 contributes to significant central canal steno sis and moderate bilateral neuroforaminal stenosis. Electronically signed by: Gela García MD Board Certified Radiologist 05/12/2018 11:01 AM E
[2018-05-12] MEDS: oxyCODONE/Acetaminophen 10/325 Tablet PO PRN ×2 (11:35→17:31)
--- NOTE | 2018-05-12 14:07 | P.PNIM ---
Subjective Interval history: Patient seen and examined this morning at her bedside. Patient reports that she has continued backpain severe which limits ambulation ( although I believe she looked better walking - subjectively she feels worse). no urinary retention no new numbness/tingling in legs reports pain medication is not providing relief no other complaints outside of the back Physical Exam Vital signs: Last Vital Signs Temp 98.6 F 05/12/18 11:40 Pulse 86 05/12/18 11:40 Resp 20 05/12/18 11:40 BP 137/77 05/12/18 11:40 Pulse Ox 99 05/12/18 11:40 Intake & Output 05/10/18 05/11/18 05/12/18 05/13/18 06:59 06:59 06:59 06:59 Intake Total 0 / 0 1900 / 1900 Balance 0 / 0 1900 / 1900 Weight 136.078 kg 137.9 kg gen: nad heent: eomi, perrla cvs: s1/s2 resp: cta bilaterally gi: soft, non tender, non distended msk: ++ scolosis, paraspinal tender ext: no edema Results Labs CBC & Chem 7: 05/11/18 06:55 05/11/18 06:55 Imaging Imaging: Impressions Lumbar Spine MRI 05/12/18 00:00 CONCLUSION: 1. Stable degenerative changes of the lumbar spine as noted above. Degenerative changes within the facet joints at all levels. The disc extrusion at L4/L5 contributes to significant central canal stenosis and moderate bilateral neuroforaminal stenosis. Assessment and Plan Plan Patient is a pleasant 32-year-old female with past medical history of menorrhagia and scoliosis presenting to emergency department for back pain and tightness. Orthopedics: Mechanical fall Imaging negative for acute fracture Physical therapy note reviewed via EMR. Continue pain control medication and muscle relaxantr Patient to use warm compression to back to aid with looseness - MRI obtained - evidence of spinal stenosis which i will request ortho look at. Patient never needed a walker and now only ambulatory with bariatric walker. 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 Anticipate discharge within 24 hours Progress Note: Quality VTE Deep Vein Thrombosis/Pulmonary Embolism Present on Admission: Yes
[2018-05-13 06:07] LABS: Hematocrit 26.7 % (35.0-46.0); Hemoglobin 7.9 gm/dL (11.6-15.3); Mean Corpuscular Hemoglobin 18.7 pg (27.0-34.0); Mean Corpuscular Volume 63.1 fL (80.0-100.0); Mean Platelet Volume 8.7 fL (7.0-11.0); Platelet Count 346 th/mm3 (150-450); Red Blood Count 4.23 mil/mm3 (4.00-5.30); Red Cell Distribution Width 25.7 % (11.6-17.2); White Blood Count 6.6 th/mm3 (4.0-11.0)
[2018-05-13 06:13] LABS: Mean Corpuscular HGB Conc 29.6 % (32.0-36.0)
[2018-05-13] MEDS: oxyCODONE/Acetaminophen 10/325 Tablet PO PRN ×2 (06:13→12:44)
[2018-05-13 06:23] LABS: Prothrombin Time 10.1 sec (9.8-11.6)
[2018-05-13 06:27] LABS: Anion Gap 6 meq/L (5-15); Blood Urea Nitrogen 10 mg/dL (7-18); Calcium 8.7 mg/dL (8.5-10.1); Carbon Dioxide 28.1 meq/L (21.0-32.0); Chloride 104 meq/L (98-107); Glomerular Filtration Rate Greater Than 89 mL/min (>89); Glucose,Random 84 mg/dL (74-106); Magnesium 2.2 mg/dL (1.5-2.5); Potassium 3.8 meq/L (3.5-5.1); Sodium 138 meq/L (136-145)
--- NOTE | 2018-05-13 09:02 | P.CONOP ---
[facility] Orthopedics Consult Note - [facility] Consult date: 05/13/18 Chief complaint: Intractable Lumbar Back Pain; Chronic Anemia Narrative: Bess is a 32-year-old female. She has a history of chronic back pain. She describes a 5-day history of acute exacerbation of her back pain. She has had severe low back pain that radiates down her left leg. Currently she is sitting in a chair and appears to be relatively comfortable. Her pain has improved slightly over the past day. She was initially unable to ambulate. She presented to the emergency room via [facility]. She has been previously diagnosed with scoliosis. She also has moderate obesity. The pain radiates down the side of her leg to her knee. Her pain is improved with rest. Her pain is worse with movement. She had a similar episode of pain approximately 2 years ago. This episode resolved with conservative treatment. She denies any previous spinal surgeries. She denies any bowel or bladder incontinence. She denies any weakness of her legs. Review of Systems Patient denies fevers, chills, weight loss, headache, visual changes, hearing loss, chest pain, palpitations, shortness of breath, nausea, vomiting, no urinary changes, diarrhea, bowel changes, neck pain, skin rashes, weakness of extremities, easy bleeding, enlarged lymph nodes, numbness of extremities, anxiety, or depression. She complains of low back pain and left leg pain Patient's social history, past medical history, and family history were reviewed on chart and with patient. [facility] - History History Provided By: Patient - Medical History Medical History: Medical History (Last Reviewed 05/13/18 @ 08:59 by Temo Estrada MD) Anemia Back pain Scoliosis - Surgical History Surgical History: Surgical History (Last Reviewed 05/13/18 @ 08:59 by Temo Estrada MD) Previous section - Family History Family History: Family History (Last Reviewed 05/13/18 @ 08:59 by Temo Estrada MD) Other Diabetes - Social History I have reviewed the patient's Social History: Yes - Tobacco History Second Hand Smoke Exposure: No Tobacco Use In Past 30 Days: Yes Smoking Status: Current some day smoker (twice a week) Tobacco Type: Cigarettes - Alcohol History How Often Do You Have a Drink Containing Alcohol: Never - Substance Use History Substance History: No History of Abuse - Travel History Recent Travel in the [facility] Within the Last 8 Weeks: No Recent Travel Out of the Country Within the Last 8 Weeks: No - Immunization History Tetanus Immunization: Unsure Medications and Allergies Active Medications: Active Medications Acetaminophen (Tylenol) 650 mg PO Q4H PRN PRN Reason: headache/fever/pain1-4 Al Hydroxide/Mg Hydroxide (Milk Of Magnesia Liq) 30 ml PO Q12H PRN PRN Reason: Mild Constipation Bisacodyl (Dulcolax Supp) 10 mg RECTAL DAILY PRN PRN Reason: SEVERE CONSITIPATION Cyclobenzaprine HCl (Flexeril) 10 mg PO Q8H PRN PRN Reason: muscle spasms Last Admin: 05/11/18 11:01 Dose: 10 mg Diphenhydramine HCl (Benadryl) 25 mg PO Q6H PRN PRN Reason: ITCHING Last Admin: 05/12/18 00:47 Dose: 25 mg Ferrous Sulfate (Ferosul) 325 mg PO BID [facility] Last Admin: 05/12/18 21:13 Dose: 325 mg Lactulose (Lactulose Liq) 30 ml PO DAILY PRN PRN Reason: SEVERE CONSITIPATION Lidocaine HCl (Lidoderm 5% Patch.12 Hr) 1 patch T-DERMAL DAILY [facility] Last Admin: 05/12/18 08:29 Dose: 1 patch Naloxone HCl (Narcan Inj) 0.4 mg IV.PUSH UNSCH PRN PRN Reason: SEE LABEL COMMENTS Ondansetron HCl (Zofran Inj) 4 mg IV.PUSH Q6H PRN PRN Reason: NAUSEA OR VOMITING Oxycodone/Acetaminophen (Percocet 10/325 Mg) 1 tab PO Q6H PRN PRN Reason: pain scale 8 to 10 Last Admin: 05/13/18 06:13 Dose: 1 tab Oxycodone/Acetaminophen (Percocet 5/325 Mg) 1 tab PO Q6H PRN PRN Reason: pain scale 5 to 7 Patch Removal (Remove Old Patch) 1 each T-DERMAL HS [facility] Last Admin: 05/12/18 21:14 Dose: 1 each Pregabalin (Lyrica) 75 mg PO BID [facility] Last Admin: 05/12/18 21:13 Dose: 75 mg Senna/Docusate Sodium (Concetta-Colace) 1 tab PO BID [facility] Last Admin: 05/12/18 21:14 Dose: Not Given Sennosides (Senokot) 17.2 mg PO Q12H PRN PRN Reason: Moderate Constipation Sodium Chloride (Ns Flush) 2 ml IV.FLUSH PRN PRN PRN Reason: FLUSH AFTER USING IV ACCESS Sodium Chloride (Ns Flush) 2 ml IV.FLUSH BID [facility] Last Admin: 05/12/18 21:13 Dose: 2 ml Allergies Allergy/AdvReac Type Severity Reaction Status Date / Time No Known Allergies Allergy Verified 05/09/18 23:15 Home Medications Medication Instructions Recorded Confirmed Type No Known Home Medications 05/09/18 05/09/18 History Exam Vital signs: Vital Signs 05/12/18 11:40 05/12/18 16:42 05/12/18 20:00 Temperature 98.6 F 98.7 F 97.7 F Pulse Rate 86 82 74 Respiratory Rate 20 20 18 Blood Pressure 137/77 120/58 L 89/48 L Pulse Oximetry 99 96 98 05/13/18 00:00 05/13/18 04:00 05/13/18 07:46 Temperature 98.0 F 98.1 F 98.7 F Pulse Rate 71 75 77 Respiratory Rate 18 18 16 Blood Pressure 118/67 114/65 129/59 L Pulse Oximetry 93 L 96 100 Intake & Output 05/12/18 05/13/18 05/13/18 18:59 06:59 18:59 Other: # Voids 1 2 Narrative: Bess is a 32-year-old female. General: Awake and alert. No acute distress. Moderately overweight Head: Normocephalic, atraumatic pupils are equal Neck: Soft, nontender, trachea midline Abdomen: Soft, nondistended Examination of right arm reveals no pain or deformity with shoulder, elbow, or wrist motion. Skin is intact. Radial pulse is palpable. Normal capillary refill in fingers. Sensation is intact in radial, ulnar, and median nerve distributions. [employer] strength is +5. No lymphadenopathy noted. Examination of left arm reveals no pain or deformity with shoulder, elbow, or wrist motion. Skin is intact. Radial pulse is palpable. Normal capillary refill in fingers. Sensation is intact in radial, ulnar, and median nerve distributions. Film [employer] strength is +5. No lymphadenopathy noted. Examination of left lower extremity reveals no pain or deformity with hip, knee , or ankle motion. Skin is intact. Sensation is intact in left foot. Dorsalis pedis pulse is palpable. Normal capillary refill and feet. Thigh and calf compartments are soft. No lymphadenopathy noted. +5 strength of ankle dorsiflexion and plantarflexion. Straight leg raise test is negative. Examination of right lower extremity reveals no pain or deformity with hip, knee , or ankle motion. Skin is intact. Sensation is intact in right foot. Dorsalis pedis pulse is palpable. Normal capillary refill and feet. Thigh and calf compartments are soft. No lymphadenopathy noted. +5 strength of ankle dorsiflexion and plantarflexion. Results - Labs Result Diagrams: 05/13/18 05:26 05/13/18 05:26 Labs: Laboratory Results - last 24 hr 05/12/18 05/12/18 05/13/18 09:48 09:48 05:26 WBC RBC Hgb Hct MCV MCH MCHC RDW Plt Count MPV ESR 55 H PT INR Sodium 138 Potassium 3.8 Chloride 104 Carbon Dioxide 28.1 Anion Gap 6 BUN 10 Creatinine 0.70 Estimated GFR Greater than 89 Random Glucose 84 Calcium 8.7 Magnesium 2.2 C-Reactive Protein 2.60 H 05/13/18 05/13/18 05:26 05:26 WBC 6.6 RBC 4.23 Hgb 7.9 L Hct 26.7 L MCV 63.1 L MCH 18.7 L MCHC 29.6 L RDW 25.7 H Plt Count 346 MPV 8.7 ESR PT 10.1 INR 1.0 Sodium Potassium Chloride Carbon Dioxide Anion Gap BUN Creatinine Estimated GFR Random Glucose Calcium Magnesium C-Reactive Protein - Diagnostic results Imaging: Impressions Lumbar Spine MRI 05/12/18 00:00 CONCLUSION: 1. Stable degenerative changes of the lumbar spine as noted above. Degenerative changes within the facet joints at all levels. The disc extrusion at L4/L5 contributes to significant central canal stenosis and moderate bilateral neuroforaminal stenosis. Assessment and Plan - Assessment and Plan Bess has chronic low back pain. She has had significant increase in her pain for 5 days. MRI of lumbar spine was reviewed. She does have significant degenerative changes of the lumbar spine. No acute fractures are noted. At this point I would recommend continued conservative treatment. Physical therapy will be consulted. She may weight-bear as tolerated. She would benefit from NSAIDs and physical therapy. She previously had a similar episode 2 years ago which resolved with conservative treatment. If her pain does not improve over the next 2 weeks, she would benefit from referral to interventional pain management for epidural steroid injections. This plan of care was discussed with patient. All questions were answered. She will follow- up with her primary care physician as needed.
[2018-05-13] MEDS: Senna/Docusate Sodium 8.6/50 MG Tablet PO SCH (09:40)
[2018-05-13] MEDS: Pregabalin 75 MG Capsule PO SCH (09:41)
[2018-05-13] MEDS: Ferrous Sulfate 325 MG Tablet PO SCH (09:41)
[2018-05-13] MEDS: Lidocaine 5% Patch T-DERMAL SCH (09:41)
--- NOTE | 2018-05-13 11:06 | P.DS ---
DS: Providers Date of admission: 05/10/18 05:21 Primary care physician: Kylah Mckay Patient is a pleasant 32 year old female who presents to the ED for severe backpain. During hospitalization PT evaluated patient and it was recommended that she have a bariatric walker. MRI obtained of the back with evidence of degenerative disease and stenosis for which orthopedics was consulted. conservative management was recommended at the time with pain control. Prior to discharge patient reports that her pain has been improving and she feels ready for discharge. On discharge patient to follow up PMD and if no improvement may be candidate for steroid injection. Consults: 05/12/18 14:02 Consult to Orthopedic Surgery Routine Consulting Provider: Temo Estrada Reason for Consultation: patient with spinal stenosis and back pain. MRI reviewed. presenting s/p fall with worsening back pain. Part of pain is due to habitus but organic stenosis also noted on imaging Notified:: Service Spoke with:: JEVON Date Notified:: 05/12/18 Time Notified:: 14:12 Ordering Provider: MATT Brief History from admission: 32-year-old female with history of scoliosis, chronic back pain, anemia, presents with acute on chronic back pain. Patient reports yesterday she had an episode where her back "locked up" and she fell to the floor. States she fell backwards, landed on her buttocks, but did not hit her head or lose consciousness. Patient states she was unable to get off the floor for over 5 hours, until family was able to assist her to the couch. She locates the pain diffusely across her lower back with radiation into the left leg, described as a constant aching pain. She took some Aleve with no relief. She was still unable to ambulate therefore she called [facility] and transported to the ER. She states she has been dealing with back pain for a long time secondary to her scoliosis. She denies any prior spinal surgeries. She denies any lower extremity numbness or weakness, but does report pain down the left leg which is chronic for her. States she sees PCP Dr. Mckay, but does not follow with orthopedics or neurology or pain management. She states usually her back pain is fairly well controlled. Upon arrival to the ED, lumbar x-ray was unremarkable, however the patient was found to have a hemoglobin of 6.6. The patient reports that she recently had a very heavy and long menstrual cycle that lasted 8 days. She states occasionally she does experience very heavy periods. She currently denies any lightheadedness, dizziness, chest pain, palpitations, shortness of breath. She states at one point she was told she should be on iron replacement, but has not taken any recently. She has no other medical complaints at this time. DS: Summary Patient is a pleasant 32 year old female who presents to the ED for severe backpain. During hospitalization PT evaluated patient and it was recommended that she have a bariatric walker. MRI obtained of the back with evidence of degenerative disease and stenosis for which orthopedics was consulted. conservative management was recommended at the time with pain control. Prior to discharge patient reports that her pain has been improving and she feels ready for discharge. On discharge patient to follow up PMD and if no improvement may be candidate for steroid injection. Time Spent with Patient Total time spent providing and/or coordinating discharge services: > 45 min Quality: VTE Deep Vein Thrombosis/Pulmonary Embolism Present on Admission: Yes Results Labs on day of discharge: Labs from last 24 hours 05/13/18 05/13/18 05/13/18 05:26 05:26 05:26 WBC 6.6 RBC 4.23 Hgb 7.9 L Hct 26.7 L MCV 63.1 L MCH 18.7 L MCHC 29.6 L RDW 25.7 H Plt Count 346 MPV 8.7 ESR PT 10.1 INR 1.0 Sodium 138 Potassium 3.8 Chloride 104 Carbon Dioxide 28.1 Anion Gap 6 BUN 10 Creatinine 0.70 Estimated GFR Greater than 89 Random Glucose 84 Calcium 8.7 Magnesium 2.2 C-Reactive Protein 05/12/18 05/12/18 09:48 09:48 WBC RBC Hgb Hct MCV MCH MCHC RDW Plt Count MPV ESR 55 H PT INR Sodium Potassium Chloride Carbon Dioxide Anion Gap BUN Creatinine Estimated GFR Random Glucose Calcium Magnesium C-Reactive Protein 2.60 H Impressions ITS Impressions Pelvis X-Ray 05/10/18 00:22 CONCLUSION: Widened pubic symphysis and possibly the sacroiliac joints. This should be correlate if there has been a prior injury. Lumbar Spine X-Ray 05/10/18 00:23 CONCLUSION: No acute abnormality seen. Abdomen/Pelvis CT 05/10/18 02:14 CONCLUSION: Mild diastases of the pubic symphysis with the pubic bones by 1.9 cm. There is also slight widening of the sacroiliac joints. Lumbar Spine MRI 05/12/18 00:00 CONCLUSION: 1. Stable degenerative changes of the lumbar spine as noted above. Degenerative changes within the facet joints at all levels. The disc extrusion at L4/L5 contributes to significant central canal stenosis and moderate bilateral neuroforaminal stenosis. Discharge Plan Discharge Disposition Patient Disposition: 01 Discharge Home Discharge Condition Condition: Stable Discharge Order Discharge Orders: Discharge Order (Routine); Ordered 05/13/18 Ordered By: Manny Adame Discharge Details Anticipated Discharge Date: 05/13/18 Discharge Comment: Please follow up with your [facility] in 7 days. if pain continues discuss referral to interventional pain management for epidural steroid injections. Physicians Team Attending Provider: Manny Adame Other Providers: Temo Estrada Rxs /Orders / Referrals /Forms Prescriptions: Umer hayes misc .ROUTE .MEDSUPPLY Qty: 1 RF: 0 oxycodone-acetaminophen [Percocet] 5-325 mg tablet 1 tab PO Q6H PRN (Reason: back pain) 3 Days Qty: 12 RF: 0 No Action No Known Home Medications RF: 0 Referrals: Kylah Mckay [Other] - See Instructions (Please follow up with your PMD within 7 days. If no improvement with conservative management would discuss referral to interventional pain management for epidural steroid injections. ) Discharge Instructions Patient Printed Instructions: Lumbar Spinal Stenosis (GEN) Additional Instructions: -If pain does not improve over the next 2 weeks, she would benefit from referral to interventional pain management for epidural steroid injections. Discharge Interventions Interventions: Discharge Planning - Case Management Last Done: 05/11/18 15:07 Status ED Status: Left Department
== END 2018-05-13 14:01 | disposition home or self-care (01) ==
LOC: NEDA 23:07 → NEPC 23:07 → NEDA 05-10 06:49 → NEPGCP 05-10 06:51
PROVIDERS: ADMIT Internal Medicine; ATTEND Internal Medicine